=== PATIENT | female | born 1990 ===

== ENCOUNTER 2018-08-01 16:40 | Inpatient (IN) | payer OTHER ==
[~2018-08-01] VITALS: Ht 167.6 cm; Wt 69.9 kg
[2018-08-01] MEDS ORDERED: PRENATABS RX T1 EACH PO (18:23)
[2018-08-01] MEDS ORDERED: FOLIC ACID0.4 MG PO (18:24)
== END 2018-08-05 13:13 | disposition home or self-care (01) | DRG 833 ==
LOC: OBS/DEL 16:40 → LDR 08-02 17:21 → OB/GYN 08-02 17:21
PROVIDERS: ADMIT Obstetrics & Gynecology
PROC: BT4JZZZ Ultrasonography of Kidneys and Bladder (ICD-10-PCS; principal; 2018-08-02)
PROC: BY4CZZZ Ultrasonography of Second Trimester, Single Fetus (ICD-10-PCS; 2018-08-02)
PROC: BW40ZZZ Ultrasonography of Abdomen (ICD-10-PCS; 2018-08-02)
DX: O26.892 Other specified pregnancy related conditions, second trimester (principal); R31.29 Other microscopic hematuria; R10.2 Pelvic and perineal pain; Z34.82 Encounter for supervision of other normal pregnancy, second trimester

== ENCOUNTER 2018-11-01 13:06 | Inpatient (IN) | payer OTHER ==
[~2018-11-01] VITALS: Ht 160 cm; Wt 73.0 kg
[~2018-11-01 13:06] MED LIST: FOLIC ACID0.4 MG PO; PRENATABS RX T1 EACH PO
[2018-11-01] MEDS ORDERED: VALTREX1000 MG PO (14:13)
== END 2018-11-05 12:00 | disposition home or self-care (01) | DRG 833 ==
LOC: LDR 13:06 → OB/GYN 13:06
PROVIDERS: ADMIT Obstetrics & Gynecology
PROC: BY4FZZZ Ultrasonography of Third Trimester, Single Fetus (ICD-10-PCS; principal; 2018-11-01)
PROC: 4A1HXCZ Monitoring of Products of Conception, Cardiac Rate, External Approach (ICD-10-PCS; 2018-11-01)
DX: O47.03 False labor before 37 completed weeks of gestation, third trimester (principal); Z34.83 Encounter for supervision of other normal pregnancy, third trimester

== ENCOUNTER 2018-12-04 11:00 | Outpatient (CLI) | payer OTHER ==
[~2018-12-04 11:00] MED LIST changes: +VALTREX1000 MG PO
[2018-12-05] MEDS ORDERED: CEFADROXIL500 MG PO (07:16)
== END 2018-12-05 11:01 | disposition home or self-care (01) ==
LOC: OBS/DEL 11:00
DX: O26.893 Other specified pregnancy related conditions, third trimester (principal); K52.89 Other specified noninfective gastroenteritis and colitis; R10.2 Pelvic and perineal pain; O23.43 Unspecified infection of urinary tract in pregnancy, third trimester; Z34.83 Encounter for supervision of other normal pregnancy, third trimester

== ENCOUNTER 2018-12-25 14:27 | Inpatient (IN) | payer OTHER ==
[~2018-12-25] VITALS: Ht 167.6 cm; Wt 72.6 kg
[~2018-12-25 14:27] MED LIST changes: +CEFADROXIL500 MG PO
[2018-12-25] MEDS ORDERED: PRENATAL TABLE1 EAC1 PO (15:08)
[2018-12-25] MEDS ORDERED: ZOFRAN8 MG PO (15:08)
[2018-12-25] MEDS ORDERED: VISTARIL50 MG (15:08)
== END 2018-12-28 11:31 | disposition home or self-care (01) | DRG 783 ==
LOC: OB/GYN 14:27 → LDR 14:27 → OB/GYN 21:33
PROVIDERS: Obstetrics & Gynecology; ADMIT Obstetrics & Gynecology
PROC: 0UL70ZZ Occlusion of Bilateral Fallopian Tubes, Open Approach (ICD-10-PCS; 2018-12-25)
PROC: 4A1HXCZ Monitoring of Products of Conception, Cardiac Rate, External Approach (ICD-10-PCS; 2018-12-25)
PROC: 10D00Z1 Extraction of Products of Conception, Low, Open Approach (ICD-10-PCS; principal; 2018-12-25 15:30)
DX: O82 Encounter for cesarean delivery without indication (principal); O60.14X0 Preterm labor third trimester with preterm delivery third trimester, not applicable or unspecified; Z3A.36 36 weeks gestation of pregnancy; Z37.0 Single live birth; Z30.2 Encounter for sterilization